=== PATIENT | female | born 1970 | race American Indian/Alaskan Native ===

== ENCOUNTER 2017-12-12 10:20 | Outpatient (CLI) | payer OTHER ==
--- NOTE | 2017-12-12 11:16 | Mammography Report ---
Screening mammogram: Routine views are obtained. The patient does not know the location of prior exams. Routine views demonstrate a heterogeneously dense fibroglandular pattern. There is a circumscribed nodule in the upper-outer right breast. There is a somewhat larger partially circumscribed appearing nodule in the superior-medial left breast. There are 2 groups of microcalcifications in the left breast superiorly. One of these is lateral in position and the other appears medial. The findings are not otherwise remarkable. CAD used. Impressions: Bilateral asymmetries and left breast calcifications. Recommendations: Bilateral compression views over the asymmetries with magnification views of the left breast calcifications. Ultrasound as indicated. BI-RADS CATEGORY: 0 = Needs additional imaging evaluation ACR BI-RADS MAMMOGRAPHIC CODES: 0 = Needs additional imaging evaluation; 1 = Negative; 2 = Benign; 3 = Probably benign; 4 = Suspicious; 5 = Malignant; 6 = Known biopsy-proven malignancy COMMENT: 1. Dense breast tissue, i.e., adenosis, fibrocystic changes, etc., may obscure an underlying neoplasm. 2. Approximately 10% of cancers are not detected with mammography. 3. A negative mammography report should not delay biopsy if a clinically suspicious mass is present.
== END 2017-12-12 10:21 | disposition home or self-care (01) ==
LOC: MAMMO 10:20
PROVIDERS: ATTEND Family Medicine
DX: Z12.31 Encounter for screening mammogram for malignant neoplasm of breast (principal)
CPT/HCPCS: 77067

== ENCOUNTER 2017-12-23 14:03 | Outpatient (CLI) | payer OTHER ==
--- NOTE | 2017-12-23 15:22 | Mammography Report ---
BILATERAL DIGITAL DIAGNOSTIC MAMMOGRAM and RIGHT BREAST ULTRASOUND: 12/23/17 14:03:00 CLINICAL: Recall to evaluate bilateral asymmetries and left calcifications. COMPARISON:12/12/17 screening FINDINGS: Bilateral ML and spot magnification views were performed. Satisfactory effacement of a left upper inner asymmetry. Scattered calcifications in the left breast have benign morphology. Agree both upper inner calcifications demonstrates layering on the lateral view. No suspicious calcifications and no architectural distortion. An oval circumscribed right upper outer density persists on spot views. Ultrasound of the upper outer right breast was performed and demonstrated an oval benign cyst at 10 o'clock 8 cm from the nipple. It correlates with the mammographic density and measures 8 x 8 x 6 mm. No solid mass or shadowing. IMPRESSION: A benign 8mm right breast cyst at 10 o'clock and left benign calcifications. BI-RADS CATEGORY: 2 - - Benign RECOMMENDATION: Routine mammographic screening in one year. ACR BI-RADS MAMMOGRAPHIC CODES: 0 = Needs additional imaging evaluation; 1 = Negative; 2 = Benign; 3 = Probably benign; 4 = Suspicious; 5 = Malignant; 6 = Known biopsy-proven malignancy COMMENT: 1. Dense breast tissue, i.e., adenosis, fibrocystic changes, etc., may obscure an underlying neoplasm. 2. Approximately 10% of cancers are not detected with mammography. 3. A negative mammography report should not delay biopsy if a clinically suspicious mass is present. COMMENT: Patient follow-up letters are generated via our [employer] application.
== END 2017-12-23 14:04 | disposition home or self-care (01) ==
LOC: SPVWC 14:03
PROVIDERS: ATTEND Family Medicine
DX: R92.8 Other abnormal and inconclusive findings on diagnostic imaging of breast (principal)

== ENCOUNTER 2020-04-12 15:38 | Outpatient (CLI) | payer OTHER ==
--- NOTE | 2020-04-12 16:30 | Ultrasound Report ---
LEFT DIAGNOSTIC MAMMOGRAM AND LEFT ULTRASOUND INDICATION: Evaluate finding noted previously in the left upper inner breast on outside imaging. COMPARISON: Recent outside imaging, 12/12/2017. FINDINGS: Mammographic views focused in the left upper inner breast were performed to evaluate the site of a pr eviously noted finding seen in this region on the recent outside screening mammogram. There are 2 adj acent partially circumscribed oval low-density lesions, likely cysts, located at about the 11:00 posi tion at posterior depth. A targeted ultrasound will be performed for further evaluation. Targeted ultrasound of the left upper inner breast in the region of interest shows a 1.5 x 0.9 x 1.5 cm complicated cyst with nondependent debris at the 11:00 position, 7 cm from the nipple. Additionall y, there is a 1.9 x 0.7 x 1.8 cm slightly lobulated, possibly septated mildly complicated cyst locate d at the 11:00 position, 5 cm from the nipple. IMPRESSION: Finding noted on the recent outside screening mammogram corresponds with two probably benign mildly c omplicated cysts (both at the 11:00 position). A six-month follow-up ultrasound is recommended. BI-RADS Category 3: Probably Benign. A "normal" or negative report should not discourage follow up or biopsy of a clinically significant f inding. A written summary of these findings will be mailed to the patient. FURTHER INFORMATION: According to the [employer], yearly mammograms are recommend ed starting at age 40 and continuing as long as a woman is in good health. Breast MRI is recommended for women with an approximately 20-25% or greater lifetime risk of breast cancer, including women wi th a strong family history of breast or ovarian cancer and women who have been treated for Hodgkin's disease. Signer Name: Tyler Dominguez MD Signed: 04/12/2020 4:26 PM Workstation Name: [id number]
== END 2020-04-12 15:39 | disposition home or self-care (01) ==
LOC: SPVWC 15:38
PROVIDERS: ATTEND Obstetrics & Gynecology
DX: R92.8 Other abnormal and inconclusive findings on diagnostic imaging of breast (principal)

== ENCOUNTER 2020-11-29 09:44 | Outpatient (CLI) | payer OTHER ==
--- NOTE | 2020-11-29 11:19 | Ultrasound Report ---
BILATERAL DIGITAL DIAGNOSTIC MAMMOGRAM WITH CAD , 11/29/2020 BILATERAL LIMITED BREAST ULTRASOUND CLINICAL INFORMATION / INDICATION: This is a short-term follow-up exam for abnormal findings in the l eft breast. ABNORMAL MAMMO R92.8 TECHNIQUE: Digital bilateral mammographic imaging was performed. Limited ultrasound was performed. Th is examination was interpreted with the benefit of Computer-Aided Detection (CAD) analysis. COMPARISON: Prior bilateral mammogram 12/12/2017. Prior left mammogram 04/12/2020, 12/23/2017. Prior left breast ultrasound 04/12/2020 and prior right breast ultrasound 12/23/2017 FINDINGS: Breast Density: The breasts are heterogeneously dense, which may obscure small masses. MAMMOGRAPHIC FINDINGS: There is a new small nodular density projecting in the right breast at 12:00, posterior depth.No other significant interval change within the right breast. Previously noted benign-appearing masses persist in the left breast at 11:00, posterior depth, unchan ged from the most recent mammogram of 04/12/2020. There is layering calcification in one of the marya s consistent with milk of calcium/fibrocystic change. Overall appearance of the left breast is stable mammographically.. ULTRASOUND FINDINGS: Targeted ultrasound evaluation was performed of the area of interest. Right breast: There is a hypoechoic mass measuring 8 x 6 mm in the right breast at 12:00, 5 cm from t he nipple. The margins are slightly irregular. There is some minimal through transmission. It is uncl ear if this is a complicated cyst or solid mass based on sonographic images. Left breast: As noted on prior ultrasound, there are 2 cystic masses identified in the 11:00 location , 5-CM from the nipple. The previously noted cystic mass at 11:00, 7 cm from nipple is again noted no t appreciably changed measuring 1.7 x 0.9 cm. There continues to be nondependent debris versus solid component along the lateral wall unchanged. There is a second oval smoothly marginated hypoechoic mas s in the 11:00 location, 5 cm from nipple, measuring 17 mm in greatest diameter. This is essentially unchanged and should represent a stable complicated cyst. No new findings within the visualized porti on of the left breast. IMPRESSION: 1. There is a new hypoechoic 8mm mass in the right breast at 12:00, identified both mammographically and sonographically. It is unclear if this is a complicated cyst or solid mass. Recommend right breas t cyst aspiration. If mass does not aspirate, ultrasound-guided biopsy is recommended. 2. Stable cystic masses within the left breast at 11:00. One of the masses is a stable complicated cy st. The second mass has persistent solid component versus nondependent debris, but is overall unchang ed in the 6 month interval time frame. This can be continued to be followed with serial 6 month ultra sound exams or can be aspirated or biopsied for more definitive evaluation. Follow up recommendation: Cyst aspiration. BI-RADS Category 4: Suspicious for Malignancy. A "normal" or negative report should not discourage follow up or biopsy of a clinically significant f inding. A written summary of these findings will be mailed to the patient. The patient will be entered into a mammography reporting system which will generate a reminder letter for the patient's next appointmen t at the appropriate interval. According to the [employer], yearly mammograms are recommended starting at age 40 and continuing as long as a woman is in good health. Breast MRI is recommended for women with an mir roximately 20-25% or greater lifetime risk of breast cancer, including women with a strong family his tory of breast or ovarian cancer and women who have been treated for Hodgkin's disease. Signer Name: Akosua Sunshine MD Signed: 11/29/2020 11:14 AM Workstation Name: [id number]
== END 2020-11-29 09:45 | disposition home or self-care (01) ==
LOC: SPVWC 09:44
PROVIDERS: ATTEND Obstetrics & Gynecology
DX: N63.41 Unspecified lump in right breast, subareolar (principal); N63.22 Unspecified lump in the left breast, upper inner quadrant; N60.02 Solitary cyst of left breast
CPT/HCPCS: 77066

== ENCOUNTER 2020-12-26 12:02 | Outpatient (CLI) | payer OTHER ==
--- NOTE | 2020-12-26 13:28 | Ultrasound Report ---
ULTRASOUND GUIDED RIGHT BREAST BIOPSY, 12/26/2020 RIGHT DIAGNOSTIC MAMMOGRAM CLINICAL INFORMATION / INDICATION: ABNORMAL MAMMO R92.8. COMPARISON: Ultrasound from 11/29/2020 PROCEDURE: Risks, benefits, and indications to the procedure were discussed with the patient in detail, includin g bleeding, infection, hematoma formation, and inadequate tissue sampling. The patient agreed to proc eed with both verbal and written consent. A timeout procedure was performed with two patient identifi ers. The breast was prepped and draped in the usual sterile fashion. Lidocaine 1% was used for local anest hesia. Under direct ultrasound guidance, 2 12-gauge core samples were obtained of the right breast no dule measuring 9 mm. A biopsy marker was then placed. Biopsy device was removed and hemostasis achie love with manual pressure. A sterile dressing was applied to the skin. The patient tolerated the procedure without difficulty. No complications were encountered. Postbiopsy instructions were discussed with the patient and given in writing. Specimens were sent to pathology. The patient was then sent for a confirmatory mammogram to demonstrate adequate clip positioning in th e area in question. IMPRESSION: 1. Technically successful ultrasound guided right breast biopsy. 2. Satisfactory positioning of the biopsy clip on the post procedure mammogram. Biopsy results are pending and will be reported in an addendum. Signer Name: Hugo Villalobos MD Signed: 12/26/2020 1:23 PM Workstation Name: [id number]
== END 2020-12-26 12:03 | disposition home or self-care (01) ==
LOC: SPVWC 12:02
PROVIDERS: ATTEND Obstetrics & Gynecology
DX: R92.8 Other abnormal and inconclusive findings on diagnostic imaging of breast (principal); N60.01 Solitary cyst of right breast; R92.0 Mammographic microcalcification found on diagnostic imaging of breast; N64.89 Other specified disorders of breast
CPT/HCPCS: 88305

== ENCOUNTER 2021-01-30 14:04 | Outpatient (CLI) | payer OTHER ==
--- NOTE | 2021-01-30 16:10 | Ultrasound Report ---
ULTRASOUND-GUIDED RIGHT BREAST BIOPSY INDICATION: Recent biopsy of the right breast discordant pathological results COMPARISON: Bilateral breast ultrasound 11/29/2020, right breast ultrasound-guided biopsy images 2020 CONSENT: Procedure was discussed at length in advance with the patient. Possible risks and benefits w ere discussed including the possibility of bleeding. Postbiopsy care was discussed. Opportunity for q uestions was provided. Patient is not on anticoagulant therapy and reports no pertinent allergies. PROCEDURE: Timeout was performed. The small deep cystic area in the 12:00 position, 5 cm from the nip ple, was targeted sonographically. The previous clip was seen to lie immediately adjacent to this cy st. Using aseptic technique and under local anesthesia, with real-time sonographic guidance, the area of interest was biopsied. A single specimen was obtained with a 12-gauge Celero biopsy device and se nt to pathology for analysis. This was seen to pass clearly through the midportion of the cyst; the h archie copy image obtained does not truly show the tip of the biopsy needle which extended beyond the cy st by real-time examination. After this single pass, the lesion became difficult to visualize for fur ther targeting and the procedure was terminated. No additional clip was deployed due to the good posi tion of the prior clip. Site was secured. Patient tolerated the procedure well and left the [facility] in good condition. IMPRESSION: Successful ultrasound-guided right breast biopsy Signer Name: Som Peres MD Signed: 01/30/2021 4:06 PM Workstation Name: [id number]
== END 2021-01-30 14:05 | disposition home or self-care (01) ==
LOC: SPVWC 14:04
PROVIDERS: ATTEND Surgery
DX: R92.2 Inconclusive mammogram (principal); R92.8 Other abnormal and inconclusive findings on diagnostic imaging of breast; Z79.899 Other long term (current) drug therapy
CPT/HCPCS: 88305; 88341; 88342